=== PATIENT | male | born 1995 | race African-American/Black ===

== ENCOUNTER 2017-02-26 12:18 | Emergency (ER) | payer SELFPAY ==
[~2017-02-26] VITALS: Ht 167.6 cm; Wt 60.0 kg
[~2017-02-26 12:18] MED LIST: ALBU17I INH; ALBU1AER INH; AZIT250T43 PO; BENZ100 PO; ZITH250T PO; [UNRECOGNIZED DRUG - OTHER]
[2017-02-26 12:20] VITALS: BP 122/61; PULSE 84; RESP 16; TEMP 98.2; O2SAT 98
--- NOTE | 2017-02-26 12:56 | PD ---
HPI . right shoulder intermittent dislocation Chief Complaint: Injury Time Seen by Provider: 12:55 Travel History International Travel<30 days: No Contact w/Intl Traveler<30days: No Traveled to known affect area: No History of Present Illness HPI 21-year-old male with no significant past medical history here with complaints of intermittent right shoulder dislocation. Patient tells me that approximately 2 months ago he dislocated his right shoulder and ever since he intermittently has episodes with the shoulder pops in and out. Patient really has no complaints. He does not have any shoulder pain. He has full range of motion of his shoulder. The shoulder is not dislocated. He just wanted to come in to see if there was something that we can do to help keep his shoulder in place. [facility] Past Medical History Asthma: Yes Respiratory: Yes (OM CHILD) Immunizations Current: Yes Social History Alcohol Use: No Tobacco Use: No Substance Use: No Allergies-Medications (Allergen,Severity, Reaction): Coded Allergies: cat dander (Unverified Allergy, Intermediate, NASAL CONGESTION, 02/08/17) dog dander (Unverified Allergy, Intermediate, NASAL CONGESTION, 02/08/17) Reported Meds & Prescriptions Reported Meds & Active Scripts Active No Active Prescriptions or Reported Medications Review of Systems General / Constitutional: No: Fever Eyes: No: Visual changes HENT: No: Headaches Cardiovascular: No: Chest Pain or Discomfort Respiratory: No: Shortness of Breath Gastrointestinal: No: Abdominal Pain Genitourinary: No: Dysuria Musculoskeletal: No: Pain Skin: No Rash Neurologic: No: Weakness Psychiatric: No: Depression Endocrine: No: Polydipsia Hematologic/Lymphatic: No: Easy Bruising Physical Exam Narrative GENERAL: AAO x 3, no acute distress, Well-nourished, well-developed patient. SKIN: Warm and dry. No visible rashes or bruising. HEAD: Normocephalic and atraumatic. EYES: No scleral icterus. No injection or drainage. ENT: No nasal drainage noted. Mucous membranes pink. Airway patent. NECK: Supple, trachea midline. No JVD. CARDIOVASCULAR: Regular rate and rhythm without murmurs, gallops, or rubs. RESPIRATORY: Breath sounds equal bilaterally. No accessory muscle use. No rhonchi or rales. GASTROINTESTINAL: visual inspection normal EXTREMITIES: No cyanosis or edema. Full ROM of b/l shoulders. no evidence of dislocation BACK: No obvious deformity. NEURO: CN II-12 intact, community health educator strength normal b/l, UE and LE 5/5, no focal deficits PSYCH: AAO x 3, normal affect. Data Data Last Documented VS Vital Signs Date Time Temp Pulse Resp B/P (MAP) Pulse Ox O2 Delivery O2 Flow Rate FiO2 02/26/17 12:39 16 99 Room Air 02/26/17 12:20 98.2 84 122/61 (81) MDM Medical Decision Making Medical Screen Exam Complete: Yes Emergency Medical Condition: No Medical Record Reviewed: Yes Differential Diagnosis rotator cuff injury, less likely shoulder dislocation, less likely shoulder fracture, Narrative Course A medical screening exam was performed: At the time of evaluation the presenting medical condition was determined not to be of an emergent nature. The patient was given the option of receiving additional care, but declined. Patient was given options for additional community resources from which to obtain care. The Patient Has Been advised to seek medical attention for their presenting complaint. The patient has been advised to return to the ER at any time if an emergent condition develops. Diagnosis Primary Impression: Encounter for medical screening examination Scripts No Active Prescriptions or Reported Meds Condition: Stable Patricia Augustin Feb 26, 2017 12:56
== END 2017-02-26 13:22 | disposition left against medical advice (07) ==
LOC: NEPD 12:18
DX: M24.411 Recurrent dislocation, right shoulder (principal)
CPT/HCPCS: 99281